=== PATIENT | female | born 1975 | race African-American/Black ===

== ENCOUNTER → 2023-08-22 11:26 | Outpatient (REF) | payer OTHER, SELFPAY | LOC: RAD 11:26 | PROVIDERS: ATTENDING PHYSICIAN Physician Assistant Medical | DX: M79.661 Pain in right lower leg (principal) | CPT/HCPCS: 93971 ==

== ENCOUNTER 2024-02-28 08:53 | Emergency (ER) | payer OTHER, SELFPAY ==
[2024-02-28 09:06] VITALS: BP 157/97
[2024-02-28 09:24] VITALS: BMI 45.6
--- NOTE | 2024-02-28 09:33 | ED.GENMED ---
History of Present Illness
General
Chief Complaint: Headache
Source: patient
Exam Limitations: none
Time Seen by Provider: 02/28/24 09:22
Nursing documentation reviewed up to this point in time: agreed with
History of Present Illness
History of Present Illness:
48-year-old female presents emergency department complaining of headache on the top of her head and frontal since Monday morning. She has taken her blood pressure medicine, and it dissipated and then recurred. She has not had a headache like this
in the past.
Past History
Past History
ED Past Medical History: HTN, NIDDM and Other (Anemia)
ED Past Surgical History: Gynecological (Endometriosis surgery) and Other (Corneal transplant)
Social History
Tobacco: Non-smoker
Alcohol: None
Drug: None
Living: with family
Review of Systems
Review of Systems
Allergies reviewed?: Yes
All Other Systems: Not applicable
Constitutional: Reports no symptoms
EENT: Reports no symptoms
Respiratory: Reports no symptoms
Cardiac: Reports no symptoms
ABD/GI: Reports nausea; Denies abdominal pain
: Reports no symptoms
Musculoskeletal: Reports no symptoms
Skin: Reports no symptoms
Neurological: Reports headache
Endocrine: Reports no symptoms
Hematologic/Lymphatic: Reports no symptoms
Psychiatric: Reports no symptoms
Phy Exam
Physical Exam
Physical Exam:
Physical Exam
General: no apparent distress, not acutely ill
Neck: supple. no meningeal signs. normal posterior pharynx
Heart: s1/s2 regular rate and rhythm, no murmur. equal radial
pulses.
HEENT: Pupils equal round reactive to light, EOMI
Lungs: no acute respiratory distress. clear bilaterally
Abdomen: normal bowel sounds. not tender. no CVAT
Neuro: alert and oriented. no focal neurological deficits cranial nerves II through XII intact
Skin: no rash
Psychiatric: well kept. interactive and cooperative
Extremities: no edema. no calf tenderness. negative homans. good distal pulses
Course
Orders/Labs/Results
Orders:
Orders
02/28/24 09:31
Cardiac Monitoring- Treatment ONCE
IV Insert/Care/Rem.- Treatment PRN
Diphenhydramine [Benadryl] 25 mg IV NOW STA
Metoclopramide [Reglan] 10 mg IV NOW STA
Pulse Ox/cont/shift [RESP] Stat
Quantity: 1
02/28/24 09:32
CT Head W/o Iv Contrast Urgent
Comment:
Reason For Exam: headache, frontal, occipital
Test Result ONCE
02/28/24 09:36
Complete Blood Count/With Diff Urgent
02/28/24 10:11
Comprehensive Metabolic Panel Urgent
HCG, Serum Qualitative Screen Urgent
Abnormal Lab Results
02/28/24 02/28/24
09:36 10:11
WBC 4.6 L 10^3/uL
(4.8-10.8)
RBC 4.00 L 10^6/uL
(4.20-5.40)
Hgb 10.2 L g/dL
(12.0-16.0)
Hct 31.5 L %
(37.0-47.0)
MCV 78.8 L fL
(81.0-99.0)
MCH 25.5 L pg
(27.0-31.0)
MCHC 32.4 L g/dL
(33.0-37.0)
RDW 18.2 H %
(11.5-14.5)
Monocytes % 11.7 H %
(1.7-9.3)
Creatinine 0.5 L mg/dL
(0.6-1.0)
Glucose 299 H mg/dl
(70-99)
AST 59 H U/L
(14-36)
ALT 53 H U/L
(0-35)
02/28/24 09:36
02/28/24 10:11
Vital Signs
Initial and Last Documented VS:
Initial Vital Signs
Temp Pulse Resp BP Pulse Ox
98.1 F 81 18 157/97 99
02/28/24 09:06 02/28/24 09:06 02/28/24 09:06 02/28/24 09:06 02/28/24 09:06
Last Documented Vital Signs
Temp Pulse Resp BP Pulse Ox
98.1 F 72 18 146/91 99
02/28/24 09:06 02/28/24 10:45 02/28/24 09:06 02/28/24 10:06 02/28/24 10:45
MDM/Problems Addressed
Differential Diagnosis Includes:
Hypertensive urgency, migraine
MDM/Problems Addressed:
48-year-old female with headache, likely migraine. Patient improved after Benadryl and Reglan. CT head no acute findings. Patient stable for discharge.
Chronic conditions affecting care: HTN
Acute Exacerbation and/or Progression of Chronic Illness: HTN
*Radiology
Radiology exam reviewed: radiology read reviewed (CT head no acute findings)
*Pulse Oximetry
Patient hypoxic: no
*Critical Care Note
Total Time (30-74mins, 75-104mins- exclusive of procedures): Not Applicable
Patient Management
Social determinants of health affecting care: Living situation and Strong social support
Escalation/DeEscalation of care consider admission/obs:
Admit not indicated
ED Attending Note
-
Portions of this chart may have been created with voice recognition software.� Occasional wrong word or��sound alike� substitutions may have occurred due to the inherent limitations of voice recognition software.
Discharge Plan
Departure
Patient Disposition: Home (Routine Discharge)
Date of Disposition: 02/28/24
Time of Disposition: 12:56
Patient with high blood pressure during this ER visit?: Yes
Condition: Good
Discharge Problem:
Headache
Instructions: Migraines (DC), BLOOD PRESSURE
Referrals:
Jocelyn Carrillo PA [Family Provider] - Call in 1-3 days for appt
Interventions
Interventions:
*Risk Screen - Suicide Last Done: 02/28/24 09:06
*General Assessment Last Done: 02/28/24 09:06
*Neglect/Abuse Screening Last Done: 02/28/24 09:06
ED- Fall Risk Assessment Last Done: 02/28/24 09:24
*ED COVID-19 Vaccine History Last Done: 02/28/24 09:24
ED- Neurological Assessment Last Done: 02/28/24 09:24
Discharge Date and Time
Print Language: HUNGARIAN
[2024-02-28] MEDS: BENADRYL 25 MG IV (09:38)
[2024-02-28] MEDS: REGLAN 10 MG IV (09:38)
[2024-02-28 09:57] LABS: % Basophils 0.7 % (0-2); % Eosinophils 1.7 % (0-6); % Immature Granulocytes 0.2 % (0-0.5); % Lymphocytes 37.6 % (20.5-51.1); % Monocytes 11.7 % (1.7-9.3); % Neutrophils 48.1 % (42.2-75.2); Absolute Eosinophils 0.1 10^3/uL (0-0.7); Absolute Lymphocytes 1.7 10^3/uL (1.2-3.4); Absolute Monocytes 0.5 10^3/uL (0.1-0.6); Absolute Neutrophils 2.2 10^3/uL (1.4-6.5); Hematocrit 31.5 % (37.0-47.0); Hemoglobin 10.2 g/dL (12.0-16.0); Mean Corp Hgb Conc. 32.4 g/dL (33.0-37.0); Mean Corpuscular Hgb 25.5 pg (27.0-31.0); Mean Corpuscular Volume 78.8 fL (81.0-99.0); Mean Platelet Volume 9.4 fL (7.4-10.4); Nucleated Red Blood Cells % 0 %; Platelet Count 286 10^3/uL (130-400); Red Cell Dist. Width 18.2 % (11.5-14.5); White Blood Cell Count 4.6 10^3/uL (4.8-10.8)
[2024-02-28 10:06] VITALS: BP 146/91
[2024-02-28 10:33] LABS: HCG, Serum Qualitative Screen Negative
[2024-02-28 10:40] LABS: ALT (SGPT) 53 U/L (0-35); AST (SGOT) 59 U/L (14-36); Albumin 4.4 g/dl (3.5-5.0); Alkaline Phosphatase 82 U/L (38-126); Blood Urea Nitrogen 11 mg/dl (7-17); Calcium 9.7 mg/dl (8.4-10.2); Carbon Dioxide 26 mmol/L (22-30); Chloride 98 mmol/L (98-107); Estimated Creatinine Clearance > 125 ml/min; Glucose 299 mg/dl (70-99); Potassium 4.6 mmol/L (3.5-5.1); Sodium 137 mmol/L (135-145); Total Bilirubin 0.3 mg/dl (0.2-1.3); Total Protein 7.5 g/dl (6.3-8.2); eGFR > 60.00
== END 2024-02-28 13:24 | disposition home or self-care (01) ==
LOC: EMR 08:53
PROVIDERS: EMERGENCY PHYSICIAN Emergency Medicine; FAMILY PHYSICIAN Physician Assistant Medical
DX: R51.9 Headache, unspecified (principal); I10 Essential (primary) hypertension; E11.9 Type 2 diabetes mellitus without complications; Z94.7 Corneal transplant status
CPT/HCPCS: 99284; 96374; 96375; 70450; 80053; 84703; 85025

== ENCOUNTER 2024-04-12 14:18 | Outpatient (RCR) | payer OTHER, SELFPAY ==
[2024-04-05] MEDS: TYLENOL 650 MG PO (14:44)
[2024-04-05] MEDS: NSS 250 IV (14:45)
[2024-04-05] MEDS: VENOFER 110 MG IV (14:45)
[2024-04-05 14:51] VITALS: BP 146/82
[2024-04-09 14:15] VITALS: BP 168/94
[2024-04-09] MEDS: NSS 250 IV (14:24)
[2024-04-09] MEDS: VENOFER 110 MG IV (14:24)
[2024-04-09] MEDS: TYLENOL 650 MG PO (14:24)
[2024-04-09 15:36] VITALS: BP 145/78
[2024-04-12 14:30] VITALS: BP 151/95
[2024-04-12] MEDS: NSS 250 IV (14:39)
[2024-04-12] MEDS: TYLENOL 650 MG PO (14:39)
[2024-04-12] MEDS: VENOFER 110 MG IV (14:40)
[2024-04-12 15:43] VITALS: BP 130/92
== END 2024-04-15 10:04 | disposition home or self-care (01) ==
LOC: OID 14:18
PROVIDERS: ATTENDING PHYSICIAN Psychiatry & Neurology Neurology; FAMILY PHYSICIAN Physician Assistant Medical
DX: D64.9 Anemia, unspecified (principal); G43.709 Chronic migraine without aura, not intractable, without status migrainosus; G43.009 Migraine without aura, not intractable, without status migrainosus; G43.109 Migraine with aura, not intractable, without status migrainosus; G43.019 Migraine without aura, intractable, without status migrainosus; I10 Essential (primary) hypertension
CPT/HCPCS: 96361; 96365; J1756

== ENCOUNTER → 2025-05-09 09:50 | Outpatient (REF) | payer OTHER, SELFPAY | LOC: WDC 09:50 | PROVIDERS: ATTENDING PHYSICIAN Physician Assistant Medical | DX: N63.14 Unspecified lump in the right breast, lower inner quadrant (principal) | CPT/HCPCS: 76642; 77062; 77066 ==

== ENCOUNTER → 2025-05-13 09:23 | Outpatient (REF) | payer OTHER, SELFPAY | LOC: RAD 09:23 | PROVIDERS: ATTENDING PHYSICIAN Family Medicine; FAMILY PHYSICIAN Physician Assistant Medical | DX: M79.645 Pain in left finger(s) (principal) | CPT/HCPCS: 73130 ==

== ENCOUNTER → 2025-06-04 11:42 | Outpatient (REF) | payer OTHER, SELFPAY | LOC: RAD 11:42 | PROVIDERS: ATTENDING PHYSICIAN Physician Assistant Medical | DX: R10.30 Lower abdominal pain, unspecified (principal) | CPT/HCPCS: 74177; Q9967 ==